=== PATIENT | male | born 1950 | race Two or more races ===

== ENCOUNTER 2021-10-06 19:56 | Emergency (ER) | payer MEDICARE, MEDICAID ==
[~2021-10-06] VITALS: Ht 172.7 cm; Wt 92.5 kg
[2021-10-06 20:30] VITALS: BP 128/74
[2021-10-06 20:50] LABS: Basophils # (auto) 0 10 ^3/uL (0-0.2); Basophils % (auto) 0.3 % (0.0-2.0); Eosinophils # (auto) 0.1 10 ^3/uL (0-0.8); Eosinophils % (auto) 0.8 % (0.0-7.0); Hematocrit 46.1 % (41.0-53.0); Hemoglobin 15.5 g/dL (13.5-17.5); Lymphocytes # (auto) 2.5 10 ^3/uL (0.4-5.4); Lymphocytes % (auto) 27.5 % (10.0-50.0); Mean Corpuscular Hemoglobin 31.5 pg (28.0-32.0); Mean Corpuscular Hgb Conc. 33.7 g/dL (32.0-36.0); Mean Corpuscular Volume 93.5 fL (80.0-100.0); Monocytes # (auto) 0.7 10 ^3/uL (0-1.3); Monocytes % (auto) 7.1 % (0.0-12.0); Neutrophils % (auto) 64.3 % (37.0-80.0); Nucleated Red Blood Cells % 0.1 %; Red Blood Cells 4.93 10^6/uL (4.5-5.90); Red Cell Distribution Width 13.9 % (11.8-14.3); White Blood Cell 9.3 10^3/uL (4.4-10.8)
[2021-10-06 21:07] LABS: Albumin 3.9 g/dL (3.4-5.0); Calcium 8.5 mg/dL (8.5-10.1); Magnesium 2.8 mg/dL (1.6-2.6); Potassium 3.3 mmol/L (3.5-5.1)
[2021-10-06 21:09] LABS: Salicylate < 1.7 mg/dL (2.8-20.0)
[2021-10-06 21:12] LABS: BUN/Creatinine Ratio 14.2; Bilirubin, Total 1.6 mg/dL (0.2-1.0)
[2021-10-06 21:20] LABS: Acetaminophen < 2.0 ug/mL (10-30)
== END 2021-10-07 03:55 | disposition left against medical advice (07) ==
LOC: ER 19:56 → EDBD 19:56 → ER 10-07 03:55
DX: S00.212A Abrasion of left eyelid and periocular area, initial encounter (principal); R51.9 Headache, unspecified; M54.2 Cervicalgia; Z53.21 Procedure and treatment not carried out due to patient leaving prior to being seen by health care provider; Y09 Assault by unspecified means; Y93.89 Activity, other specified; Y92.89 Other specified places as the place of occurrence of the external cause; Y99.8 Other external cause status
CPT/HCPCS: 36415; 70450; 70486; 72125; 80053; 80320; 80329; 83735; 85025

== ENCOUNTER 2023-10-25 14:37 | Emergency (ER) | payer MEDICAID ==
[~2023-10-25] VITALS: Ht 170.2 cm; Wt 104.3 kg
[2023-10-25] MEDS ORDERED: AMOXICILLIN/CLAVUL 875 MG TAB PO ONE (15:15)
[2023-10-25] MEDS ORDERED: HYDROcodone-ACET 5/325MG TAB PO ONE (15:15)
[2023-10-25] MEDS ORDERED: TETANUS-DIPTH-ACEL PERTUSSIS 0.5ML SYR Tdap IM ONE (15:15)
[2023-10-25 16:04] LABS: Basophils # (auto) 0 10 ^3/uL (0-0.2); Basophils % (auto) 0.4 % (0.0-2.0); Eosinophils # (auto) 0.1 10 ^3/uL (0-0.8); Eosinophils % (auto) 1.2 % (0.0-7.0); Hematocrit 46.5 % (41.0-53.0); Hemoglobin 15.9 g/dL (13.5-17.5); Lymphocytes # (auto) 1.5 10 ^3/uL (0.4-5.4); Lymphocytes % (auto) 21.7 % (10.0-50.0); Mean Corpuscular Hemoglobin 31.6 pg (28.0-32.0); Mean Corpuscular Hgb Conc. 34.1 g/dL (32.0-36.0); Mean Corpuscular Volume 92.5 fL (80.0-100.0); Monocytes # (auto) 0.5 10 ^3/uL (0-1.3); Monocytes % (auto) 7.8 % (0.0-12.0); Neutrophils # (auto) 4.8 10 ^3/uL (1.6-8.6); Neutrophils % (auto) 68.9 % (37.0-80.0); Nucleated Red Blood Cells % 0.2 %; Red Blood Cells 5.03 10^6/uL (4.5-5.90); Red Cell Distribution Width 13.7 % (11.8-14.3); White Blood Cell 6.9 10^3/uL (4.4-10.8)
[2023-10-25 16:20] LABS: Alanine Aminotransferase 46 U/L (7-40); Albumin 4.8 g/dL (3.2-4.8); Alkaline Phosphatase 69 U/L (46-116); Anion Gap 11 (5-15); Aspartate Aminotransferase 35 U/L (13-40); BUN/Creatinine Ratio 14.1 (10.0-20.0); Blood Urea Nitrogen 13 mg/dL (9-23); Calcium 9.6 mg/dL (8.5-10.1); Carbon Dioxide 26 mmol/L (20-30); Chloride 103 mmol/L (98-107); Glucose 119 mg/dL (74-106); Sodium 140 mmol/L (136-145)
[2023-10-25 16:21] LABS: Bilirubin, Total 2.1 mg/dL (0.2-1.0); Total Protein 7.5 g/dL (5.7-8.2)
[2023-10-25 18:21] LABS: Urine Bacteria FEW /hpf (None Seen); Urine Blood Negative /uL (Negative); Urine Clarity Clear (Clear); Urine Color Yellow (Yellow); Urine Mucus FEW (None Seen); Urine Protein, UAD 1+ (Negative); Urine Specific Gravity 1.028 (1.001-1.035); Urine WBC 1 /hpf (0 - 3); Urine pH 5.5 (5.0-8.0)
[2023-10-25 18:21] LABS: Lipase 49 U/L (12-53)
[2023-10-25] MEDS ORDERED: IBUP1TAB5 PO (18:58)
[2023-10-25] MEDS ORDERED: ACET500T58 PO (18:58)
[2023-10-25] MEDS ORDERED: AMOX875T4 PO (18:58)
[2023-10-25 19:08] VITALS: BP 134/87; PULSE 98; RESP 18; TEMP 98.7; O2SAT 94
== END 2023-10-25 19:10 | disposition home or self-care (01) ==
LOC: ER 14:37
DX: B34.9 Viral infection, unspecified (principal); K04.7 Periapical abscess without sinus; R07.89 Other chest pain; Z86.73 Personal history of transient ischemic attack (TIA), and cerebral infarction without residual deficits
CPT/HCPCS: 36415; 71045; 80053; 81001; 83690; 83880; 84484; 85025; 90471; 90715